=== PATIENT | male | born 1935 | race Caucasian/White ===

== ENCOUNTER → 2024-05-30 13:46 | Outpatient (REF) | payer OTHER, SELFPAY | LOC: HWRCS 13:46 | PROVIDERS: ATTENDING PHYSICIAN Internal Medicine Cardiovascular Disease; FAMILY PHYSICIAN Family Medicine | DX: I48.0 Paroxysmal atrial fibrillation (principal); I34.0 Nonrheumatic mitral (valve) insufficiency | CPT/HCPCS: 93306 ==

== ENCOUNTER 2024-09-14 10:16 | Inpatient (IN) | payer OTHER, SELFPAY ==
[2024-08-23 09:59] LABS: Hematocrit 38.3 % (39.0-52.0); Hemoglobin 12.5 g/dL (13.0-18.0); Mean Corp Hgb Conc. 32.6 g/dL (33.0-37.0); Mean Corpuscular Hgb 31.4 pg (27.0-31.0); Mean Corpuscular Volume 96.2 fL (80.0-94.0); Mean Platelet Volume 12.2 fL (7.4-10.4); Platelet Count 205 10^3/uL (130-400); Red Blood Cell Count 3.98 10^6/uL (4.70-6.10); Red Cell Dist. Width 13.2 % (11.5-14.5); White Blood Cell Count 6.8 10^3/uL (4.8-10.8)
[2024-08-23 11:24] LABS: ALT (SGPT) 26 U/L (0-50); AST (SGOT) 27 U/L (17-59); Albumin 3.5 g/dl (3.5-5.0); Alkaline Phosphatase 60 U/L (38-126); Blood Urea Nitrogen 25 mg/dl (9-20); Calcium 8.7 mg/dl (8.4-10.2); Carbon Dioxide 28 mmol/L (22-30); Chloride 106 mmol/L (98-107); Glucose 98 mg/dl (70-99); Potassium 4.7 mmol/L (3.5-5.1); Sodium 141 mmol/L (135-145); Total Bilirubin 0.4 mg/dl (0.2-1.3); Total Protein 5.9 g/dl (6.3-8.2)
[2024-08-23 12:10] LABS: Glycohemoglobin (HgbA1c) 5.3 % (4.0-5.6)
[2024-08-23 12:18] VITALS: BMI 32.6
[2024-09-07 15:17] VITALS: BMI 32.6
[2024-09-14] VITALS (12 sets, daily range): BP systolic 116–145; BP diastolic 54–91; BMI 32.6
--- NOTE | 2024-09-14 11:22 | W.PN.UPDATE ---
Update Note
Progress Note Update
R TKA Dr. Mason 09/14/24
DVT Prophylaxis-Eliquis--will also advise SCD device at home
Hx PE-b/l, LLE DVT-01/2023 provoked
Hx ESBL UTI 01/2023-insensitive to Ancef
Hx L TSA, R TSA
PAF
PVCs
--tele
---resume full dose Eliquis POD#3 provided he is hemodynamically stable
Hx Prostats CA 2016-s/p [id number]-mdyuzcavnbnu-d/p brachytherapy
Urinary retention--resume Flomax -monitor voids
Hx Melanoma
Remote tobacco
Obesity-BMI 32.6
[2024-09-14] MEDS: TYLENOL 650 MG PO ×2 (11:26→16:42)
[2024-09-14] MEDS: CELEBREX 200 MG PO (11:26)
[2024-09-14] MEDS: NORMOSOL-R/PLASMALYTE-A 1000 IV (11:27)
--- NOTE | 2024-09-14 12:26 | W.DS.TRANS ---
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
-
Discharge Instructions:
Sleep Apnea Risk Low
Discharge Diagnosis/Procedures R TKA Dr. Mason 09/14/24
Diet As tolerated
Activity With Walker
Driving Restrictions No driving
Bathing Restrictions OK to Shower
Other Services PT
Instructions:
Stand-Alone Forms: Total Hip/Knee Replacement D/C
Changes to Home Medications: Yes
Discharge Medications:
DC Medications w/original date entered in [employer]
dexamethasone 4 mg tablet 4 mg PO BID 09/07/24
mupirocin 2 % topical ointment 1 applic topical BID 09/07/24
ondansetron HCl 4 mg tablet 4 mg PO Q6H PRN nausea 09/07/24
oxycodone 5 mg tablet 5 mg PO Q4H 09/07/24
tamsulosin 0.4 mg capsule (Flomax) 0.8 mg PO HS 09/07/24
acetaminophen 500 mg tablet 1,000 mg (2 x 500 mg) PO QID #0 tabs 09/14/24
apixaban 5 mg tablet (Eliquis) 2.5 mg (1/2 x 5 mg) PO BID Blood clot prevention/tx/afib #0 tabs 09/14/24
docusate sodium 100 mg capsule (Colace) 100 mg PO BID stool softner #1 cap 09/14/24
magnesium hydroxide 400 mg/5 mL oral suspension (Milk of Magnesia) 30 ml PO HS PRN Constipation #1 mL 09/14/24
sennosides 8.6 mg tablet (Senokot) 17.2 mg (2 x 8.6 mg) PO BID laxative #2 tabs 09/14/24
Home Medication Changes
dexamethasone 4 mg tablet 4 mg PO BID 09/07/24
mupirocin 2 % topical ointment 1 applic topical BID 09/07/24
ondansetron HCl 4 mg tablet 4 mg PO Q6H PRN nausea 09/07/24
oxycodone 5 mg tablet 5 mg PO Q4H 09/07/24
tamsulosin 0.4 mg capsule (Flomax) 0.8 mg PO HS 09/07/24
acetaminophen 500 mg tablet 1,000 mg (2 x 500 mg) PO QID #0 tabs 09/14/24
apixaban 5 mg tablet (Eliquis) 2.5 mg (1/2 x 5 mg) PO BID Blood clot prevention/tx/afib #0 tabs 09/14/24
docusate sodium 100 mg capsule (Colace) 100 mg PO BID stool softner #1 cap 09/14/24
magnesium hydroxide 400 mg/5 mL oral suspension (Milk of Magnesia) 30 ml PO HS PRN Constipation #1 mL 09/14/24
sennosides 8.6 mg tablet (Senokot) 17.2 mg (2 x 8.6 mg) PO BID laxative #2 tabs 09/14/24
Pending Results: No
[2024-09-14] MEDS: ROXICODONE 5 MG PO (15:44)
--- NOTE | 2024-09-14 15:53 | OR.RPT ---
Operative Report
Operative Report
Orthopaedic Surgery Operative Note
DATE OF OPERATION: 09/14/2024
PREOPERATIVE DIAGNOSES: Osteoarthritis, right knee.
POSTOPERATIVE DIAGNOSES: Osteoarthritis, right knee.
OPERATION PERFORMED:
1) Right total knee arthroplasty (CPT 38605)
2) Intraosseous administration of analgesic (CPT 11586)
SURGEON: Brandon Mason MD
ASSISTANTS: Horacio Nicholson PA-C who helped with patient and limb positioning and retraction
ANESTHESIA: Spinal by anesthesia plus intraoperative infusion of morphine into the tibial metaphysis by Dr. Mason
COMPLICATIONS: None.
ESTIMATED BLOOD LOSS: 20mL
DRAINS: None
TOURNIQUET TIME: 66 minutes.
IMPLANTS:
- Robles Persona CR Femur, size 11
- Robles Persona tibia base plate, size F
- Robles Persona ultracongruent articular surface, 10 mm
- All-polyethylene patellar component, size 35
- DJO Porum bone cement
INDICATIONS: The patient presented to my office with debilitating right knee pain due to osteoarthritis. We reviewed the natural history of this problem, as well as the risks, benefits, and alternatives of various treatment options. The patient
exhausted all nonoperative treatment options and wished to proceed with knee replacement surgery. The patient understood the risks which included, but were not limited to, bleeding, infection, failure to relieve pain, more pain than preop, damage to
blood vessels and nerves, need for reoperation, mechanical failure of the implants, wound healing problems, stiffness, instability, blood clot, pulmonary embolism, myocardial infarction, pneumonia, arrhythmia, CVA, and . The patient accepted
these risks and wished to proceed. All questions were answered, and informed consent was obtained.
PROCEDURE IN DETAIL: The patient was identified in the preoperative holding area. The right knee was identified as the operative site. The patient was taken in the operating room and placed in a supine position on the operating table. Spinal
anesthesia was performed. IV antibiotics and tranexamic acid were administered. An SCD was placed on the left lower extremity. A well-padded tourniquet was placed on the proximal thigh. All bony prominences were well padded. The right lower
extremity was prepped and draped in the usual sterile fashion.
We performed a surgical time-out. An interarticular block was performed with local anesthetic with epinephrine. The limb was exsanguinated with an Esmarch bandage, then the tourniquet was inflated to 250 mmHg. I performed interosseous administration
of morphine-saline solution via a Jamshidi style intraosseous needle into the proximal medial tibial metaphysis as described by Nicholas Rudolph MD. This was performed to aid in pain control. A midline skin incision was made followed by a medial
parapatellar arthrotomy. A subperiosteal peel was performed on the medial tibia. I excised part of the infrapatellar fat pad to improve our visualization as well as tissue over anterior femur. The patella was everted and the knee was flexed. I
excised the remnants of the anterior and posterior cruciate ligaments as well as tibial and femoral osteophytes with rongeurs.
The knee was flexed, and the extramedullary tibial cutting guide was aligned. [place] was aligned at neutral, rotation was centered on the tibial tubercle, and coronal alignment was aligned with the mechanical axis of the tibia and center of the ankle
joint. The cut height was 4mm off the lateral tibia joint surface due to valgus. The guide was secured into place. The MCL and LCL were protected. The tibia surface was cut. The cut surface was inspected after removal to ensure appropriate height
and slope based on the preoperative plan. The cut was checked with a drop janeth. It was centered nicely at the ankle.
A drill was used to open the femoral canal. The intramedullary distal femoral cutting guide was inserted into the femur. This was set at 5 degrees +0. This was secured into place with three pins. The cut level was checked with an coleen wing. The
distal femur was cut through the cutting guide. The IM guide was reinserted to double check that the level of resection was flush and in appropriate alignment.
Larimer�s line and the transepicondylar axis were marked on the femur. The femoral sizing guide was applied to the anterior femur. Pins were inserted, and the 4-in-1 cutting guide was applied and secured into place. The rotation was compared to
Festus�s line, the transepicondylar axis, and the neutral tibia cut and was found to be appropriate. The width was checked and found to be appropriate and lateralized on the femur. The anterior, posterior, and chamfur cuts were made. A lamina
talent management specialist was used to open the flexion gap, and posterior osteophytes were removed with a curved osteotome. A large loose body was removed from the posterior lateral joint space. I investigated for the ossific bodies seen in the popliteal fossa on
xray, but these were not anterior to the capsule. I investigated in the pouch between the medial head of gastroc and semimembranosis, but no further bodies were identified. The remnant medial and lateral meniscus were also removed. I
prophylactically cauterized the lateral geniculate arteries. A 10mm spacer block was applied to the flexion gap and was noted to be balanced medially and laterally. The knee was extended, and the block showed symmetric to extension and flexion gaps.
The tibia was exposed and sized. Rotation was set in line with the tibial tubercle and congruent with the femur. The trial was secured into place with two pins. The trial femur was impacted into place, and a trial articular surface was placed. The
knee was taken through range of motion and noted to be stable throughout the arc of motion without gaping or excess tension. In extension, a measured resection of the patella was performed. The patella was sized, and lug holes were drilled. A trial
patella component was applied, and it was noted to track centrally throughout the arc of motion without need for further releases.
The trials were removed. The tibia keel was prepared with the punch and the drill. The bone surfaces were irrigated with sterile saline and dried. The cement was mixed in a vacuum mixer. Cement gun was used to apply cement to the tibial surface and
the undersurface of the tibial implant. Cement was pressurized into the tibial canal and tibia surface. The tibial component was impacted into place. Excess cement was removed. Cement was applied to the femoral surface and the femoral component. The
femoral component was impacted into place, and excess cement removed. A trial articular surface was inserted, and the knee was extended while the cement polymerized. The tourniquet was let down, and meticulous hemostasis was achieved. Dilute
betadine was poured into the wound and allowed to soak for 3 minutes. The knee was irrigated with copious normal saline.
Once the cement was polymerized, the trial articular surface was removed. Any excess cement was removed. The knee was trialed, and the final articular surface was selected and inserted into the tibial locking mechanism. The knee was reduced. A fresh
drape was applied to the surgical field.
The arthrotomy was closed with 0-PDS. Once closed, an interarticular block was performed with local anesthetic with epi. The deep dermal layer was closed with 2-0 PDS, and the subcuticular skin was closed with 3-0 monocryl. A Dermabond Prineo
dressing was applied to the skin in full flexion. Once this was completely dry, a sterile waterproof dressing was applied.
The anesthesia team performed an adductor canal block in the OR. The patient awoke from anesthesia without any difficulties. The sponge and instrument counts were correct x2 at the end of the case.
Enrike Mason MD
[2024-09-14] MEDS: DILAUDID 0.25 MG IV ×2 (16:27→16:42)
[2024-09-14] MEDS: DILAUDID 0.5 MG IV (17:03)
[2024-09-14] MEDS: TYLENOL PO ×2 (17:39→20:43)
[2024-09-14] MEDS: SENOKOT PO (20:54)
[2024-09-14] MEDS: DECADRON 6 MG IV (20:54)
[2024-09-14] MEDS: COLACE PO (20:54)
[2024-09-14] MEDS: ULTRAM PO (20:54)
[2024-09-14] MEDS: ELIQUIS 2.5 MG PO (20:55)
[2024-09-14] MEDS: ANCEF 5 IV (20:55)
[2024-09-14] MEDS: BACTROBAN 2% OINTMENT 1 APPLIC NASAL (22:13)
[2024-09-14] MEDS: NEURONTIN 300 MG PO (22:14)
[2024-09-14] MEDS: FLOMAX 0.8 MG PO (22:14)
[2024-09-15] MEDS: TYLENOL PO ×2 (01:00→04:41)
[2024-09-15 03:20] VITALS: BP 145/71
--- NOTE | 2024-09-15 04:36 | PTCARENOTE ---
2100: Pt sat on side of bed, stood up with assistx1. Pt reported feeling unsteady - pt was still groggy post op. Pt sat back down and repositioned higher in bed. Assessment ongoing.
[2024-09-15] MEDS: ANCEF 5 IV (04:54)
[2024-09-15 06:00] VITALS: BMI 34.6
[2024-09-15 07:25] VITALS: BP 132/66
[2024-09-15] MEDS: BACTROBAN 2% OINTMENT 1 APPLIC NASAL (08:00)
[2024-09-15] MEDS: SENOKOT 17.2 MG PO (08:00)
[2024-09-15] MEDS: COLACE 100 MG PO (08:00)
[2024-09-15] MEDS: ELIQUIS 2.5 MG PO (08:01)
[2024-09-15] MEDS: ULTRAM 50 MG PO (08:01)
[2024-09-15] MEDS: TYLENOL 650 MG PO (08:02)
[2024-09-15] MEDS: DECADRON 6 MG IV (08:02)
[2024-09-15 09:10] VITALS: BP 137/69; PULSE 71; O2SAT 96
[2024-09-15 09:51] VITALS: BP 122/54; PULSE 65; O2SAT 95
[2024-09-15] MEDS: MAALOX 30 ML PO (10:31)
[2024-09-15] MEDS: ZOFRAN 4 MG IV (10:32)
[2024-09-15] MEDS: LASIX 10 MG IV (10:43)
[2024-09-15 10:45] VITALS: BP 120/54; BP 121/59; BP 127/60; PULSE 74; PULSE 79
--- NOTE | 2024-09-15 10:56 | W.PN.ORTHO ---
Today's Communication / Plan
-
d/c
Assessment
.
Distal Motor Intact: Yes
Dressing:
Clean, dry and intact.
Assessment:
DVT Prophylaxis-Eliquis--will also advise SCD device at home
Hx PE-b/l, LLE DVT-01/2023 provoked
Hx ESBL UTI 01/2023-insensitive to Ancef
Hx L TSA, R TSA
PAF
PVCs
--stable on tele
---resume full dose Eliquis POD#3 provided he is hemodynamically stable
Hx Prostate CA 2016-s/p [id number]-eepiyaophsix-b/p brachytherapy
Urinary retention--Flomax resumed --resolved--void 250--PVR 0
Hx Melanoma
Remote tobacco
Obesity-BMI 32.6
Plan
.
Surgery / Date: R WALT Mason 09/14/24
DVT Prophylaxis: Other (Eliquis+ SCD)
Activity:
Out of bed.
PT/OT
Discharge Plan: Home w/ Outpatient PT
Subjective
.
.:
Patient resting comfortably.
+reflux
Vital Signs and Labs
.
Vital Signs and Labs:
Lab Results
08/23/24 09:48
08/23/24 09:48
Temp Pulse Resp BP Pulse Ox
97.0 F 75 16 127/60 90
09/15/24 07:25 09/15/24 07:25 09/15/24 07:25 09/15/24 10:43 09/15/24 07:25
Non-invasive Hgb result: 12.1
Physical Exam
-
HEENT: No pallor, cyanosis, or jaundice. Throat clear.
NECK: Supple. No JVD.
RESPIRATORY: Lungs clear to auscultation.
CVS: S1, S2 normal. RRR.� No murmur, rub or gallop.
ABDOMEN: Soft, non-tender. No distension. BS+/normal.
EXTREMITIES: strength equal, no calf pain with palpation
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 No focal deficits. transition coach grossly intact-mild cognitive impairment in relation to memory and comprehension
[2024-09-15] MEDS: PROTONIX 40 MG PO (10:59)
--- NOTE | 2024-09-15 11:15 | CM ---
Addendum entered by Jana Euceda 09/15/24 11:18:
IA completed.
Lives at home with in an apartment, elevator access
PLOF: Independent
Denies HH/Rehab
PCP: Dr. Bernardo
Pharmacy: [facility], [address]
Original Note:
Patient seen at bedside.
PT/OT Rec outpatient therapy
Patient states has outpatient therapy scheduled for Wednesday at [facility] on [address] to [address] him.
IMM explained & signed. In chart.
PLAN: Home, outpatient therapy
to transport.
[2024-09-15 11:25] VITALS: BP 108/55
--- NOTE | 2024-09-15 11:57 | PTCARENOTE ---
Pt educated on importance of purchasing venous compression device from [facility]. Educated on wearing the venous compression device at home when sitting for prolonged periods and sleeping due to his history of bilateral pulmonary
emboli as well as left DVT. Pt verbalized understanding.
== END 2024-09-15 12:49 | disposition home or self-care (01) | DRG 470 ==
LOC: 2 SOUTH 10:16
PROVIDERS: ADMITTING PHYSICIAN Orthopaedic Surgery; FAMILY PHYSICIAN Family Medicine; REFERRING PHYSICIAN Internal Medicine Cardiovascular Disease
PROC: 0SRC0J9 Replacement of Right Knee Joint with Synthetic Substitute, Cemented, Open Approach (ICD-10-PCS; 2024-09-14)
DX: M17.11 Unilateral primary osteoarthritis, right knee (principal); Z79.01 Long term (current) use of anticoagulants; Z85.46 Personal history of malignant neoplasm of prostate; Z85.820 Personal history of malignant melanoma of skin; E66.9 Obesity, unspecified; Z68.34 Body mass index [BMI] 34.0-34.9, adult; Z86.718 Personal history of other venous thrombosis and embolism; Z86.711 Personal history of pulmonary embolism; I48.0 Paroxysmal atrial fibrillation; Z87.891 Personal history of nicotine dependence; Z96.611 Presence of right artificial shoulder joint; Z96.612 Presence of left artificial shoulder joint
CPT/HCPCS: 36415; 73560; 80053; 83036; 85027; 87070; 97110; 97116; 97162; 97166; 97530; C1713; C1776

== ENCOUNTER 2025-01-02 18:46 | Emergency (ER) | payer OTHER, SELFPAY ==
[2025-01-02 18:47] VITALS: BP 138/97
[2025-01-02 21:00] VITALS: BMI 31.8
[2025-01-02 21:03] VITALS: BP 166/79
--- NOTE | 2025-01-02 21:19 | ED.GENMED ---
History of Present Illness
General
Chief Complaint: Back Pain
Source: patient
Exam Limitations: none
Time Seen by Provider: 01/02/25 21:26
Nursing documentation reviewed up to this point in time: agreed with
History of Present Illness
History of Present Illness:
89-year-old male with history of PE and A-fib and DVT on Eliquis, prostate cancer with resection 2017,
Patient states he has his right knee replaced by Dr. Kapoor and finished 2 months of 3 days a week physical therapy. On 11/25 he started playing golf again. He continued his knee exercises such as laying on his stomach on his bed and dangling the
knee over the edge of the bed. The first week of December he started having left lower back spasms intermittently sometimes for 20 minutes usually every other day. 5 days ago the spasms got so bad he went to the chiropractor that day and also went
the following day and yesterday and had several different types of massage as well as adjustments to his back. He states initially his back was sore but it felt better.
He played golf today and at 430 he bent over in the shower and could not move due to severe back pain and spasms. He was applying heat and ice 20 minutes could not get up out of bed or move due to the pain and spasms. While he has been here
sitting in the WR, with pillow behind his back in has been getting 'small spasms.'
He denies fever or chills. He denies loss of bowel or bladder control. He denies weakness in his legs. He denies saddle numbness.
He had a normal bowel movement this morning and has had no trouble urinating.
Past History
Past History
ED Past Medical History: Arrthythmia (A-fib on Eliquis), Cancer (Prostate cancer) and Other (PE)
ED Past Surgical History: Orthopedic (Left shoulder replacement 2018, right shoulder replacement November 2022, right knee arthroscopy x2) and Urological (Prostate cancer [employer] 2018. TURP 1999 and again 2009)
Social History
Tobacco: Non-smoker
Alcohol: None
Drug: None
Personal:
Living: with family
Employment: Retired
Family History
Family History: Other (Noncontributory)
Review of Systems
Review of Systems
Allergies reviewed?: Yes
All Other Systems: ROS reviewed and negative except as documented in HPI and ROS
Constitutional: Denies fever or chills
Respiratory: Denies trouble breathing
Cardiac: Denies chest pain
ABD/GI: Denies abdominal pain, nausea or vomiting
: Denies dysuria or difficulty voiding
Musculoskeletal: Reports back pain (Left lower back spasms)
Skin: Reports no symptoms
Neurological: Reports no symptoms
Phy Exam
Physical Exam
Physical Exam:
GENERAL: Moderate distress due to significant left lower back spasm. A&Ox3.
CONSTITUTIONAL: Afebrile.
EYES: clear, conjunctivae normal
ENMT: moist mucus membranes
RESPIRATORY: Regular respirations, nonlabored, lungs clear.
CARDIOVASCULAR: Regular rate and rhythm, no murmurs, no rubs.
GI: Soft, nontender, normal BS
MUSCULOSKELETAL: Tender left lower back with spasm. Well perfused.
SKIN: Warm, dry, pink
PSYCH: Anxious mood and affect. Well kept, interactive and appropriate
NEUROLOGIC: Awake, alert and oriented. No focal neurological deficits
Course
Orders/Labs/Results
Orders:
Orders
01/02/25 18:57
Lumbar Spine Complete, 4 View [CR Lumbar Spine Comp Min 4 Vw*] Urgent
Comment:
Reason For Exam: L lower back pain
01/02/25 21:10
Electrocardiogram (*1) Urgent
Reason for Study: Atrial Fibrillation
EKG- Treatment ONCE
01/02/25 21:41
Dexamethasone Sod Phosphate [Decadron] 10 mg IV NOW STA
diazePAM [Valium Injection] 5 mg IV NOW STA
01/02/25 21:42
Acetaminophen [Tylenol] 1,000 mg PO NOW STA
01/02/25 22:42
Oxygen Therapy [O2 Therapy] [RESP] Urgent
Titrate/Wean O2 to maintain O2 sat greater than (%): 93
Wean Oxygen to Pre Admission Baseline Therapy-if applicable: Yes
Contact provider if nasal cannula O2 requirement > 6 liters: Yes
01/03/25 01:08
Hydrocodone 5/APAP 325 [[place]odge 5/325] 1 tablet PO NOW STA
Vital Signs
Initial and Last Documented VS:
Initial Vital Signs
Temp Pulse Resp BP Pulse Ox
98.9 F 84 20 138/97 97
01/02/25 18:47 01/02/25 18:47 01/02/25 18:47 01/02/25 18:47 01/02/25 18:47
Last Documented Vital Signs
Temp Pulse Resp BP Pulse Ox
98.9 F 59 17 175/89 93
01/02/25 18:47 01/03/25 00:00 01/03/25 00:00 01/03/25 00:00 01/03/25 00:00
MDM/Problems Addressed
Differential Diagnosis Includes:
Back muscle spasm, retroperitoneal bleed
MDM/Problems Addressed:
89-year-old male with history of PE and A-fib and DVT on Eliquis, prostate cancer with resection 2018,
Patient states he has his right knee replaced by Dr. Kapoor and finished 2 months of 3 days a week physical therapy. On 11/25 he started playing golf again. He continued his knee exercises such as laying on his stomach on his bed and dangling the
knee over the edge of the bed. The first week of December he started having left lower back spasms intermittently sometimes for 20 minutes usually every other day. 5 days ago the spasms got so bad he went to the chiropractor that day and also went
the following day and yesterday and had several different types of massage as well as adjustments to his back. He states initially his back was sore but it felt better.
He played golf today and at 430 he bent over in the shower and could not move due to severe back pain and spasms. He was applying heat and ice 20 minutes could not get up out of bed or move due to the pain and spasms. While he has been here
sitting in the WR, with pillow behind his back in has been getting 'small spasms.'
He denies fever or chills. He denies loss of bowel or bladder control. He denies weakness in his legs. He denies saddle numbness.
He had a normal bowel movement this morning and has had no trouble urinating.
EKG sinus rhythm with sinus arrhythmia, left axis deviation, no change
IMPRESSION:
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
01/03/2025 12:20 AM
After IV Valium, Decadron and Tylenol p.o., patient out of bed and ambulating with steady gait, walking to the bathroom and back independently states he feels much better
No longer having back spasms although the left lower back is 'sore.'
Rx for Valium 2 mg tablets and prednisone 40 mg daily for 5 days sent to his pharmacy.
*EKG
EKG Intrepretation Date: 01/02/25
Interpretation: abnormal
Comparison EKG: no changes
Heart Rate: 63
Rate: normal
Rhythm: sinus and sinus arrhythmia
[place]: left axis deviation
Interval: normal interval
QRS Pattern: normal QRS
Ischemia: no ischemia
*Critical Care Note
Total Time (30-74mins, 75-104mins- exclusive of procedures): Not Applicable
ED Attending Note
-
Portions of this chart may have been created with voice recognition software.� Occasional wrong word or��sound alike� substitutions may have occurred due to the inherent limitations of voice recognition software.
Discharge Plan
Departure
Patient Disposition: Home (Routine Discharge)
Date of Disposition: 01/03/25
Time of Disposition: 00:23
Patient with high blood pressure during this ER visit?: No
Condition: Good
Discharge Problem:
Spasm of muscle of lower back
Instructions: Low back pain in adults, Muscle spasm - ED discharge instructions
Prescriptions:
New
prednisone 20 mg tablet
40 mg PO DAILY Qty: 10 0RF
diazepam [Valium] 2 mg tablet
2 mg PO BID PRN (Reason: muscle spasm) Qty: 10 0RF
No Action
tamsulosin [Flomax] 0.4 mg Capsule
0.8 mg PO HS
acetaminophen 500 mg tablet
1,000 mg PO QID Qty: 0 0RF
Eliquis 5 mg Tablet
2.5 mg PO BID Qty: 0 0RF
Rx Instructions:
1/2 tab twice a day--RESUME FULL DOSE 5MG TWICE DAILY ON 09/17/24
tamsulosin [Flomax] 0.4 mg Capsule
0.4 mg PO DAILY
Referrals:
Keanu Bernardo, DO [Family Provider] - As needed
Activity Restrictions/Additional Instructions:
As we discussed, I sent a prescription to your pharmacy for Valium 2 mg to use up to twice a day as needed for back muscle spasms.
I also sent a prescription for prednisone to take 40 mg a day for the next 5 days for inflammation. Start the prednisone tomorrow as you were given a dose of steroid here tonight.
You may also take Tylenol 1000 mg up to 3 times a day as needed for pain.
Warm compresses may help.
No coughing, lengthy car rides, lengthy walking, bending or any activity that aggravates the back pain into you are 100% better
See your doctor in 5 to 7 days if you are not improving by then
Do not drive or operate any machinery within 8 hours of taking the Valium as it can make you sleepy and slow the reflexes.
Interventions
Interventions:
*Risk Screen - Suicide Last Done: 01/02/25 18:47
*General Assessment Last Done: 01/02/25 18:47
*Neglect/Abuse Screening Last Done: 01/02/25 18:47
*ED- Fall Risk Assessment Last Done: 01/02/25 21:03
*ED COVID-19 Vaccine History Last Done: 01/02/25 21:03
*Nursing Disposition Last Done: 01/03/25 01:00
ED-Musculoskeletal Assessment Last Done: 01/02/25 21:14
Discharge Date and Time
Discharge Date/Time: 01/03/25 01:00
Print Language: CITIZEN [place]
[2025-01-02] MEDS: DECADRON 10 MG IV (21:58)
[2025-01-02] MEDS: VALIUM INJECTION 5 MG IV (21:59)
[2025-01-02] MEDS: TYLENOL 1000 MG PO (21:59)
[2025-01-02 22:07] VITALS: BP 174/85
[2025-01-02 23:00] VITALS: BP 161/77
[2025-01-03] VITALS: BP 175/89
[2025-01-03] MEDS: NORCO 5/325 1 TABLET PO (01:12)
== END 2025-01-03 01:00 | disposition home or self-care (01) ==
LOC: EMR 18:46
PROVIDERS: EMERGENCY PHYSICIAN Emergency Medicine; FAMILY PHYSICIAN Family Medicine
DX: M54.50 Low back pain, unspecified (principal); M62.830 Muscle spasm of back; I48.91 Unspecified atrial fibrillation; M19.90 Unspecified osteoarthritis, unspecified site; N40.0 Benign prostatic hyperplasia without lower urinary tract symptoms; Z96.651 Presence of right artificial knee joint; Z96.612 Presence of left artificial shoulder joint; Z96.611 Presence of right artificial shoulder joint; Z86.711 Personal history of pulmonary embolism; Z86.718 Personal history of other venous thrombosis and embolism; Z85.46 Personal history of malignant neoplasm of prostate; Z85.820 Personal history of malignant melanoma of skin; Z87.891 Personal history of nicotine dependence; Z79.01 Long term (current) use of anticoagulants
CPT/HCPCS: 99284; 96374; 96375; 72110; 93005